=== PATIENT | female | born 1975 | race Caucasian/White ===

== ENCOUNTER 2024-05-09 14:20 | Day surgery (SDC) | payer BC ==
[2024-05-09] MEDS ORDERED: ONDANSETRON 4 MG/2 ML VIAL ONE (16:45)
[2024-05-09] MEDS ORDERED: ACETAMINOPHEN INJECTION 100 ML ONE (16:45)
[2024-05-09] MEDS ORDERED: FAMOTIDINE 20 MG/50 ML IVPB 20 MG/50 ML MG IVPB ONE (16:45)
[2024-05-09] MEDS: ACETAMINOPHEN 1000 MG/100 ML BAG IVPB ONE (16:55)
[2024-05-09] MEDS: SODIUM CHLORIDE 0.9% 500 ML INFUS.BAG IV ONE (16:55)
[2024-05-09] MEDS: ONDANSETRON 4 MG/2 ML VIAL IVPUSH ONE (16:55)
[2024-05-09] MEDS: FAMOTIDINE 20 MG/50 ML IVPB 20 MG/50 ML MG IVPB ONE (16:55)
[2024-05-09 17:06] LABS: URINE APPEARANCE CLEAR; URINE BILIRUBIN NEGATIVE (NEGATIVE); URINE COLOR YELLOW; URINE GLUCOSE (UA) 2+ (NEGATIVE); URINE KETONE TRACE (NEGATIVE); URINE LEUK ESTERASE NEGATIVE (NEGATIVE); URINE NITRITE NEGATIVE (NEGATIVE); URINE PROTEIN NEGATIVE (NEGATIVE)
[2024-05-09 17:08] LABS: BASO % 0.5 % (0-2.0); HEMOGLOBIN 11.7 GM/dL (10.7-15.3); LYMPH % 6.2 % (8-40); MCH 25.5 pg (25.7-33.7); MCHC 32.6 g/dl (32.0-36.0); MEAN CELL VOLUME 78.2 fl (80-96); MEAN PLT VOLUME 8.7 fl (7.5-11.1); MONO % 7.6 % (3.8-10.2); NEUT % 84.7 % (42.8-82.8); PLATELET COUNT 265 10^3/uL (134-434); RDW 15.1 % (11.6-15.6); WHITE BLOOD COUNT 17.7 K/mm3 (4.0-10.0)
[2024-05-09 17:30] LABS: POTASSIUM 3.7 mmol/L (3.5-5.1)
[2024-05-09 17:33] LABS: ALBUMIN 4.2 g/dl (3.4-5.0); BLOOD UREA NITROGEN 18.4 mg/dL (7-18); CALCIUM 9.6 mg/dL (8.5-10.1)
[2024-05-09 17:36] LABS: CREATININE 0.8 mg/dL (0.55-1.3)
[2024-05-09 17:38] LABS: BILIRUBIN,TOTAL 0.4 mg/dL (0.2-1); TOT PROT 7.8 g/dl (6.4-8.2)
[2024-05-09] MEDS ORDERED: KETOROLAC TROMETHAMINE 15 MG/ML VIAL ONE (20:57)
[2024-05-09] MEDS: LACTATED RINGERS SOLUTION 1,000 ML/1,000 ML INFUS.BAG IV SCH (21:04)
[2024-05-09] MEDS: KETOROLAC TROMETHAMINE 30 MG/1 ML VIAL IVPUSH ONE (21:04)
[2024-05-09] MEDS ORDERED: PIPERACILLIN/TAZOB 3.375 GM 3.375 GM/50 ML BAG IVPB ONE (21:08)
[2024-05-09] MEDS: PIPERACILLIN/TAZOB 3.375 GM 3.375 GM in DEXTROSE 5%-WATER - 50 ML IVPB ONE (21:15)
[2024-05-09] MEDS: MORPHINE SULFATE 2 MG/ML SYRINGE IVPUSH PRN (23:42)
[2024-05-09] MEDS: ONDANSETRON 4 MG/2 ML VIAL IVPUSH PRN (23:43)
[2024-05-09 23:50] LABS: MAGNESIUM 2.2 mg/dL (1.8-2.4)
[2024-05-10 02:11] VITALS: BMI 34.0
[2024-05-10] MEDS: ACETAMINOPHEN 1000 MG/100 ML BAG IVPB PRN (05:55)
[2024-05-10] MEDS: PIPERACILLIN/TAZOB 3.375 GM 50 ML IVPB SCH (06:59)
[2024-05-10] MEDS: VALSARTAN 160 MG TABLET PO SCH (09:28)
[2024-05-10] MEDS: HYDROCHLOROTHIAZIDE 12.5 MG CAPSULE (FP) PO SCH (09:28)
[2024-05-10] MEDS: ENOXAPARIN NA (PORCINE) 40 MG/0.4 ML DISP.SYRIN SQ SCH (09:28)
[2024-05-10 09:31] LABS: BASO % 0.3 % (0-2.0); EOS % 0.9 % (0-4.5); HEMATOCRIT 30.7 % (32.4-45.2); LYMPH % 7.1 % (8-40); MCH 25.3 pg (25.7-33.7); MCHC 32.7 g/dl (32.0-36.0); MEAN CELL VOLUME 77.4 fl (80-96); MEAN PLT VOLUME 8.5 fl (7.5-11.1); MONO % 6.6 % (3.8-10.2); NEUT % 85.1 % (42.8-82.8); PLATELET COUNT 217 10^3/uL (134-434); RBC 3.96 M/mm3 (3.60-5.2); WHITE BLOOD COUNT 15.5 K/mm3 (4.0-10.0)
[2024-05-10 09:56] LABS: POTASSIUM 3.2 mmol/L (3.5-5.1)
[2024-05-10] MEDS ORDERED: PATIENT'S OWN MEDICATION (NON-FORMULARY) (Valsartan/Hydrochlorothiazide [Valsartan-Hctz 16 PO SCH (10:00)
[2024-05-10 10:01] LABS: BLOOD UREA NITROGEN 13.6 mg/dL (7-18)
[2024-05-10 10:02] LABS: CALCIUM 8.8 mg/dL (8.5-10.1)
[2024-05-10 10:04] LABS: CREATININE 0.8 mg/dL (0.55-1.3); PHOSPHOROUS 3.9 mg/dL (2.5-4.9)
[2024-05-10 10:05] LABS: ALBUMIN 3.4 g/dl (3.4-5.0); TOT PROT 6.4 g/dl (6.4-8.2)
[2024-05-10] MEDS: KCL 10 MEQ IVPB 10 MEQ/100 ML INFUS.BAG IVPB SCH (11:46)
[2024-05-10] MEDS: LACTATED RINGERS SOLUTION 1,000 ML/1,000 ML INFUS.BAG IV SCH (18:50)
[2024-05-11 10:09] LABS: BASO % 0.2 % (0-2.0); EOS % 0.5 % (0-4.5); HEMATOCRIT 32.8 % (32.4-45.2); HEMOGLOBIN 10.8 GM/dL (10.7-15.3); LYMPH % 5.4 % (8-40); MCH 25.6 pg (25.7-33.7); MCHC 32.8 g/dl (32.0-36.0); MEAN CELL VOLUME 77.9 fl (80-96); MEAN PLT VOLUME 8.5 fl (7.5-11.1); NEUT % 86.9 % (42.8-82.8); PLATELET COUNT 230 10^3/uL (134-434); RDW 15.3 % (11.6-15.6); WHITE BLOOD COUNT 16.4 K/mm3 (4.0-10.0)
[2024-05-11 10:18] LABS: INR 1.49 (0.83-1.09); PROTHROMBIN TIME (PATIENT) 16.9 SEC (9.7-13.0)
[2024-05-11 11:33] LABS: CALCIUM 8.8 mg/dL (8.5-10.1); POTASSIUM 3.5 mmol/L (3.5-5.1)
[2024-05-11 11:35] LABS: ALBUMIN 3.2 g/dl (3.4-5.0); BLOOD UREA NITROGEN 12.5 mg/dL (7-18)
[2024-05-11 11:37] LABS: CREATININE 0.7 mg/dL (0.55-1.3)
[2024-05-11 11:39] LABS: TOT PROT 6.5 g/dl (6.4-8.2)
[2024-05-11 11:40] LABS: BILIRUBIN,TOTAL 1.9 mg/dL (0.2-1)
[2024-05-11] MEDS ORDERED: BUPIVACAINE HCL/PF 0.5% (5MG/ML) 10 ML VIAL ONE ×2 (11:47→12:12)
[2024-05-11] MEDS ORDERED: PROPOFOL 20 ML ONE (12:10)
[2024-05-11] MEDS ORDERED: MIDAZOLAM HCL 2 MG/2 ML SINGLE DOSE VIAL ONE (12:10)
[2024-05-11] MEDS ORDERED: ROCURONIUM BROMIDE 50 MG/5 ML SYRINGE ONE (12:12)
[2024-05-11] MEDS ORDERED: ALBUTEROL SO4 HFA INHALER IH ONE ×2 (12:30→12:31)
[2024-05-11] MEDS: PIPERACILLIN/TAZOB 3.375 GM 3.375 GM in DEXTROSE 5%-WATER - 50 ML IVPB SCH (12:30)
[2024-05-11] MEDS: BUPIVACAINE HCL/PF 0.5% (5MG/ML) 10 ML VIAL IJ ONE (12:52)
[2024-05-11] MEDS ORDERED: ONDANSETRON 4 MG/2 ML VIAL ONE (14:13)
[2024-05-11] MEDS ORDERED: SUGAMMADEX SODIUM 200 MG/2 ML VIAL ONE (14:13)
[2024-05-11] MEDS ORDERED: ONDANSETRON 4 MG/2 ML VIAL IVPUSH PRN ×2 (15:17→15:45)
[2024-05-11] MEDS: LACTATED RINGERS SOLUTION 1,000 ML IV SCH ×2 (15:30→17:30)
[2024-05-11] MEDS ORDERED: LACTATED RINGERS SOLUTION 1,000 ML IV SCH (15:45)
[2024-05-11] MEDS ORDERED: ACETAMINOPHEN INJECTION 100 ML ONE (16:06)
[2024-05-11] MEDS: ACETAMINOPHEN 1000 MG/100 ML BAG IVPB SCH (16:07)
[2024-05-11 17:39] VITALS: RESP 18
[2024-05-11] MEDS ORDERED: PIPERACILLIN/TAZOB 3.375 GM 50 ML IVPB SCH (21:00)
[2024-05-11] MEDS: PIPERACILLIN/TAZOB 3.375 GM 50 ML IVPB SCH (21:47)
[2024-05-12] MEDS: guaiFENesin 200 MG/10 ML 10 ML UNIT-DOSE CUPS PO ONE (04:49)
[2024-05-12] MEDS: DOCUSATE SODIUM 100 MG CAPSULE (FP) PO ONE (04:49)
[2024-05-12] MEDS: KETOROLAC TROMETHAMINE 15 MG/ML VIAL IVPUSH PRN (04:57)
[2024-05-12 09:19] LABS: BASO % 0.3 % (0-2.0); EOS % 1.1 % (0-4.5); HEMATOCRIT 27.4 % (32.4-45.2); HEMOGLOBIN 9.1 GM/dL (10.7-15.3); LYMPH % 8.1 % (8-40); MCH 25.7 pg (25.7-33.7); MCHC 33.1 g/dl (32.0-36.0); MEAN CELL VOLUME 77.8 fl (80-96); MEAN PLT VOLUME 8.3 fl (7.5-11.1); MONO % 5.4 % (3.8-10.2); NEUT % 85.1 % (42.8-82.8); PLATELET COUNT 245 10^3/uL (134-434); RBC 3.52 M/mm3 (3.60-5.2); RDW 15.3 % (11.6-15.6); WHITE BLOOD COUNT 11.3 K/mm3 (4.0-10.0)
[2024-05-12 09:43] LABS: POTASSIUM 3.5 mmol/L (3.5-5.1)
[2024-05-12] MEDS: HYDROCHLOROTHIAZIDE 12.5 MG CAPSULE (FP) PO SCH (09:52)
[2024-05-12] MEDS: VALSARTAN 160 MG TABLET PO SCH (09:52)
[2024-05-12] MEDS: guaiFENesin 200 MG/10 ML 10 ML UNIT-DOSE CUPS PO PRN (09:53)
[2024-05-12 10:02] LABS: ALBUMIN 2.6 g/dl (3.4-5.0); CALCIUM 8.2 mg/dL (8.5-10.1); MAGNESIUM 2.2 mg/dL (1.8-2.4)
[2024-05-12 10:03] LABS: BLOOD UREA NITROGEN 15.1 mg/dL (7-18)
[2024-05-12 10:05] LABS: CREATININE 0.8 mg/dL (0.55-1.3); PHOSPHOROUS 3.4 mg/dL (2.5-4.9)
[2024-05-12 10:08] LABS: BILIRUBIN,TOTAL 1.4 mg/dL (0.2-1); TOT PROT 5.8 g/dl (6.4-8.2)
[2024-05-12] MEDS: guaiFENesin 600 MG TABLET.ER (FP) PO SCH (14:10)
[2024-05-12] MEDS: ENOXAPARIN NA (PORCINE) 40 MG/0.4 ML DISP.SYRIN SQ ONE (14:13)
[2024-05-12] MEDS: oxyCODONE HCL 5 MG TABLET PO PRN (18:29)
[2024-05-13] MEDS: ACETAMINOPHEN 325 MG TABLET (FP) PO ONE (04:26)
[2024-05-13] MEDS: ENOXAPARIN NA (PORCINE) 40 MG/0.4 ML DISP.SYRIN SQ SCH (09:33)
[2024-05-13 10:07] LABS: BASO % 0.4 % (0-2.0); EOS % 6.3 % (0-4.5); HEMATOCRIT 26.2 % (32.4-45.2); HEMOGLOBIN 8.5 GM/dL (10.7-15.3); LYMPH % 12.6 % (8-40); MCH 25.5 pg (25.7-33.7); MCHC 32.3 g/dl (32.0-36.0); MEAN PLT VOLUME 8.1 fl (7.5-11.1); MONO % 6.5 % (3.8-10.2); NEUT % 74.2 % (42.8-82.8); PLATELET COUNT 293 10^3/uL (134-434); RBC 3.32 M/mm3 (3.60-5.2); RDW 15.3 % (11.6-15.6); WHITE BLOOD COUNT 8.3 K/mm3 (4.0-10.0)
[2024-05-13 10:30] LABS: POTASSIUM 3.5 mmol/L (3.5-5.1)
[2024-05-13 10:48] LABS: ALBUMIN 2.5 g/dl (3.4-5.0); CALCIUM 8.5 mg/dL (8.5-10.1)
[2024-05-13 10:49] LABS: BLOOD UREA NITROGEN 13.6 mg/dL (7-18); MAGNESIUM 2.3 mg/dL (1.8-2.4)
[2024-05-13 10:51] LABS: CREATININE 0.6 mg/dL (0.55-1.3)
[2024-05-13 10:52] LABS: BILIRUBIN,TOTAL 0.7 mg/dL (0.2-1); TOT PROT 5.9 g/dl (6.4-8.2)
[2024-05-13 11:20] VITALS: BP 112/72; PULSE 92; TEMP 98.4
[2024-05-13] MEDS: AMOX TR/POT CLAV 875MG/125MG TABLETS (FP) PO ONE (13:48)
== END 2024-05-13 14:52 | disposition home or self-care (01) ==
LOC: JER 14:20 → UNDOADMOB 20:30 → JERBED 20:30 → J5S 05-10 00:59 → JERBED 05-10 00:59 → JASUSAT 05-10 01:00 → J5S 05-10 01:00 → SUATTDRO 05-10 01:00 → JASUSAT 05-13 14:52
PROVIDERS: ATTEND Nurse Practitioner Family
PROC: 0FT44ZZ Resection of Gallbladder, Percutaneous Endoscopic Approach (ICD-10-PCS; principal; 2024-05-10)
DX: K80.00 Calculus of gallbladder with acute cholecystitis without obstruction (principal)
CPT/HCPCS: 0241U-QW; 36415; 74177-TC; 76700-TC; 76705-TC; 80053; 81003; 83690; 83735; 84100; 85025; 85610; 86850; 86870; 86880; 86900; 86901; 86902; 87040; 87086; 88304-TC; 94010; 94760; 99285-25; J0131; Q9967

== ENCOUNTER 2024-09-05 18:55 | Emergency (ER) | payer BC ==
[2024-09-05 19:05] VITALS: BP 121/73; PULSE 90; RESP 20; TEMP 98.3; BMI 32.8
[2024-09-05] MEDS ORDERED: predniSONE 10 MG TABLET (UD) ONE (20:08)
[2024-09-05] MEDS ORDERED: ACETAMINOPHEN 500 MG TABLET (FP) ONE (20:08)
[2024-09-05] MEDS ORDERED: ALBUTEROL SO4 2.5/IPRATROPIUM 0.5 INH SOL 3 ML VIAL.NEB. NEB ONE (20:08)
[2024-09-05] MEDS ORDERED: predniSONE 20 MG TABLET (UD) ONE (20:09)
[2024-09-05] MEDS: predniSONE 20 MG TABLET (UD) PO ONE (20:21)
[2024-09-05] MEDS: ACETAMINOPHEN 500 MG TABLET (FP) PO ONE (20:21)
[2024-09-05] MEDS: ALBUTEROL SO4 2.5/IPRATROPIUM 0.5 INH SOL 3 ML VIAL.NEB. NEB ONE ×2 (20:21)
[2024-09-05 20:45] LABS: THROAT:GRP A STREP NOT DETECTED (NOTDETECTED)
[2024-09-05] MEDS ORDERED: guaiFENesin/CODEINE 5 ML UNIT-DOSE CUPS PO ONE (21:01)
[2024-09-05] MEDS: guaiFENesin/CODEINE 10 ML UNIT-DOSE CUPS PO ONE (21:05)
== END 2024-09-05 23:40 | disposition home or self-care (01) ==
LOC: JERFT 18:55
PROC: 3E0F7GC Introduction of Other Therapeutic Substance into Respiratory Tract, Via Natural or Artificial Opening (ICD-10-PCS; principal; 2024-09-05)
PROC: 3E0F7GC Introduction of Other Therapeutic Substance into Respiratory Tract, Via Natural or Artificial Opening (ICD-10-PCS; 2024-09-05)
DX: J45.901 Unspecified asthma with (acute) exacerbation (principal); J22 Unspecified acute lower respiratory infection; R05.9 Cough, unspecified; R06.02 Shortness of breath; R09.89 Other specified symptoms and signs involving the circulatory and respiratory systems
CPT/HCPCS: 0241U-QW; 71046-TC-FY; 87651; 99284-25